=== PATIENT | female | born 1970 | race Caucasian/White ===

== ENCOUNTER 2017-11-24 17:57 | Emergency (ER) | payer OTHER, SELFPAY ==
[2017-11-24 17:58] VITALS: BP 142/79; PULSE 84; RESP 22; TEMP 36.3; O2SAT 98; BMI 30.9
--- NOTE | 2017-11-24 19:15 | CT_ITS ---
STUDY: CT ABDOMEN AND PELVIS WITHOUT CONTRAST REASON FOR EXAM: Female, 47 years old. Radiating left flank pain RADIATION DOSAGE (If Supplied By Facility): CTDIvol = ( 15.76 ) mGy, DLP = ( 842.84 ) mGycm TECHNIQUE: Transaxial images were obtained from the dome of the diaphragm to the symphysis pubis without oral contrast, and without intravenous contrast. Sagittal and coronal images were reconstructed. Individualized dose optimization techniques were used for this CT. COMPARISON: None. FINDINGS: The visualized lung bases are unremarkable. The visualized portions of the heart are within normal limits. There is decreased attenuation of the liver consistent with steatosis. Normal gallbladder and extrahepatic biliary system. Normal spleen. Normal pancreas. Normal bilateral adrenal glands. The right kidney is absent. Left kidney shows hydronephrosis and hydroureter. There are nonobstructing cortical medullary junction stones measuring between 2 and 3 mm. Axial image 155 shows a 2 mm stone in the distal left ureter likely responsible for the hydronephrosis. There is a small hiatal hernia. Normal small intestine. Normal colon. The appendix is visualized and appears normal. Normal-appearing appendix on coronal recon image 61. Normal abdominal aorta. Normal inferior vena cava. Normal retroperitoneum. Normal urinary bladder. Normal visualized uterus. No suspicious adnexal mass or free fluid. There are likely Essure devices in each fallopian tube. Normal abdominal wall. Normal osseous structures. CT/Abdomen/Pelvis without Cont IMPRESSION: There is a 2 mm stone in the distal left ureter causing hydronephrosis and hydroureter, no significant perinephric or periureteral inflammatory stranding. Punctate nonobstructing left renal stones Right kidney is absent Small hiatal hernia Fatty infiltration of liver Electronically Signed: Clovis Baptiste MD at 20:34 EDT , Service support ,
[2017-11-24 19:25] LABS: Absolute Lymphocyte Count 2.37 X10^3/ul (0.83-4.51); Absolute Neutrophil Count 6.5 X10^3/uL (2.0-7.7); Basophil# 0.01 X10^3/uL; Basophil% 0.1 % (0-1); Eosinophil# 0.07 X10^3/uL; Eosinophils% 0.7 % (0-5); Hematocrit 43.3 % (37-47); Hemoglobin 14.2 g/dl (12.0-15.0); Lymphocyte # 2.37 X10^3/ul (4.0); Lymphocyte % 24.5 % (19-41); Mean Corp Hgb Conc 32.8 g/gl (32-36); Mean Corpuscular Hgb 28.9 pg (27.0-32.0); Mean Corpuscular Volume 88.2 fL (81-99); Mean Platelet Vol. 10.9 fl (6.2-12.0); Monocyte# 0.74 X10^3/uL; Monocyte% 7.6 % (0-10); Neutrophil # 6.48 X10^3/uL (2.7-7.7); POSITIVE COUNT NO; POSITIVE DIFFERENTIAL NO; POSITIVE MORPHOLOGY NO; Platelet Count 211 K/mm3 (150-450); RBC Distribution Width CV 12.8 % (11.6-14.6); RBC Distribution Width SD 41.3 fl (35.1-43.9); Red Blood Count 4.91 M/mm3 (4.2-5.4); White Blood Count 9.7 K/mm3 (4.4-11.0)
[2017-11-24] MEDS: Ketorolac 30 MG/ML Syringe IV (19:32)
[2017-11-24] MEDS: 0.9% Normal Saline 1,000 ML 250 ML IV (19:32)
[2017-11-24] MEDS: Ondansetron 4 MG/2 ML Vial IV (19:32)
[2017-11-24 19:33] LABS: Anion Gap 9 (5-15); BUN 19 mg/dL (7-18); BUN/Creat Ratio 18.3 RATIO (10-20); Chloride 106 mmol/L (98-107); Creatinine, Serum 1.04 mg/dL (0.55-1.02); EST Glomerular Filtration Rate 60 mL/min (>60); Est Glom Filt Rate - Afr Amer 73 mL/min (>60); Glucose 113 mg/dL (74-106); Potassium 3.7 mmol/L (3.5-5.1); Sodium Level 140 mmol/L (136-145)
[2017-11-24] MEDS: Morphine 4 MG/ML Syringe IV ×2 (19:56→21:09)
[2017-11-24 20:01] LABS: Bacteria 0 SEEN /hpf (None Seen); Mucous, Urine 0 SEEN /hpf (<or=2+)
[2017-11-24 20:02] LABS: Color, Urine Brown (Yellow); Glucose, Dipstick Normal (Normal); Ketone-Dipstick 5 mg/dl (Negative); Leukocyte Esterase-Dipstick 25 /ul (Negative); Nitrite-Dipstick Negative (Negative); Occult Blood-Urine 250 /ul (Negative); Protein-Dipstick 100 mg/dl (Negative); Specific Gravity, Urine 1.025 (1.002-1.030); Urine Bilirubin Dipstick Negative (Negative); Urine Clarity Cloudy (Clear); Urine Urobilinogen Normal (Normal)
[2017-11-24 20:10] LABS: Amorphous Sediment 1+ URATE; Red Blood Cells-Urine > 100 SEEN /hpf (0-5); Squamous Epithelial Cells - UA 0-5 SEEN /hpf (5-10); White Blood Cells 0-5 SEEN /hpf (0-5)
--- NOTE | 2017-11-24 20:56 | ED.DCSUM_ITS ---
- ER Visit Summary Date of Service: 11/24/17 Chief Complaint: Left flank pain History of Present Illness: The patient is a 47 F who presents with left flank pain that began today. Patient states the pain began couple hours prior to arrival. Patient states the pain is sharp. Patient states the pain started in her left flank and is now over the left lower flank area. Patient states her urine may be darker today. Patient denies any [place] hematuria. Patient admits to some nausea and vomiting. Patient denies any fevers or chills. Patient denies any dysuria. Patient denies any prior history of kidney stones. Physical Examination: Vital signs are stable. Patient is afebrile. Patient is in no acute distress. Oral mucosa is pink and moist. Neck is supple. Trachea is midline. There is no JVD noted. Heart was regular rate and rhythm. Lungs are clear and equal bilateral. Abdomen is soft. Bowel sounds are normal. There is some left CVA tenderness. There is no rebound or guarding noted. There is no lower abdominal tenderness. Cranial nerves II through XII are i ntact. There are no focal motor or sensory deficits noted. Test Results: CT scan of the abdomen and pelvis was obtained. There is a 2 mm calculus in the left distal ureter. There is mild hydronephrosis and hydroureter. CBC, basic metabolic profile, and urinalysis were obtained. There is evidence of hematuria but there is no sign of urinary tract infection. The remaining labs are within normal limits. Emergency Department Course and Treatment: Patient was given IV fluids. Patient was given Toradol and morphine here. Patient states her pain is improving. Patient was given a prescription for Percocet. Patient was instructed to follow-up with her primary care physician in 2-3 days. Patient and her understood and was agreeable with the plan. All questions were answered. Disposition: Discharged home Impression: Left ureteral calculus This note was generated with [employer] dictation software. It may contain incorrect words, spelling, and punctuation that were not noted in review of the chart prior to signing ED Disposition - Plan for ED Patient: Disposition: Home or Assisted Living Chief Complaint: Flank Pain Diagnosis: Left ureteral calculus Instructions: ED Stone Renal W Colic Prescriptions: Oxycodone HCl/Acetaminophen [Percocet 5/325] 1 tab PO Q6H PRN PRN 3 Days #12 tab PRN Reason: Pain Referrals: Bursley,Parrish, MD [Primary Care Provider] -
[2017-11-24 21:41] VITALS: BP 121/74; PULSE 87; RESP 18; O2SAT 94
== END 2017-11-24 21:42 | disposition home or self-care (01) ==
PROVIDERS: Emergency Provider Emergency Medicine; Family Provider Family Medicine; PCP Family Medicine
DX: N13.2 Hydronephrosis with renal and ureteral calculous obstruction (principal)
CPT/HCPCS: 74176; 80048; 81001; 85025; 96361; 96374; 96375; 96376; 99283; J7030; A4216; J2405